=== PATIENT | female | born 1955 | race Caucasian/White ===

== ENCOUNTER 2020-08-03 10:44 | Day surgery (SDC) | payer MEDICARE ==
[2020-08-02 11:02] LABS: ALBUMIN 3.3 g/dL (3.4-5.0); ANION GAP 3 mmol/L (5-15); CHLORIDE 111 mmol/L (98-107)
[2020-08-02 11:04] LABS: INTERNATIONAL NORMALIZED RATIO 0.94 (0.93-1.1); PROTHROMBIN TIME 10.1 Seconds (9.6-11.5)
[2020-08-02 11:06] LABS: ALANINE AMINOTRANSFERASE 25 U/L (12-78); ALKALINE PHOSPHATASE 85 U/L (45-117); BASOPHILS % (AUTO) 1 % (0-1); BILIRUBIN,TOTAL 0.4 mg/dL (0.2-1.0); EOSINOPHILS % (AUTO) 1 % (1-7); LYMPHOCYTES % (AUTO) 26 % (22-44); MEAN CORPUSCULAR HEMOGLOBIN 32.9 pg (27.0-34.8); MEAN CORPUSCULAR HGB CONC 33.1 g/dL (32.4-35.8); MEAN PLATELET VOLUME 7.5 fL (7.4-10.4); MONOCYTES % (AUTO) 10 % (2-9); NEUTROPHILS % (AUTO) 62 % (42-75); PLATELET COUNT 304 x10^3/uL (130-400); RED BLOOD COUNT 4.12 x10^6/uL (3.82-5.3); TOTAL PROTEIN 7.3 g/dL (6.4-8.2)
[2020-08-02 11:07] LABS: MD NO
[~2020-08-03] VITALS: Ht 162.6 cm; Wt 106.7 kg
[~2020-08-03 10:44] MED LIST: BUPIVACAINE/PF-EPI 0.25% 1:200K ONE; CHOL10003 PO; CURCUMIN PO; EPHEDRINE 50 MG/ML, 1ML IVPush PRN; FENTANYL PF 100 MCG/2ML IV PRN; GLUC1CAP40 PO; HYDROmorphone 1 MG/ML, 1ML INJ IVPush PRN; KRIL500C PO; LABETALOL 5MG/ML, 20ML IV PRN; MILK175C5 PO; MULT-449 PO; NIACIN PO; ONDANSETRON 2MG/ML, 2ML IVPush PRN; OXYcodone 5 MG/5 ML ORAL.SOL UDC PO PRN; PROMETHAZINE 25 MG/ML, 1ML IVPush PRN; TURMERIC PO; VITS1TAB3 PO; [UNRECOGNIZED DRUG - OTHER] PO; hydrALAzine 20 MG/ML, 1ML IV PRN
[2020-08-03] MEDS ORDERED: CHLORHEXIDINE 15 ML UDC MM ONE (11:00)
[2020-08-03 11:09] VITALS: BP 163/93
[2020-08-03] MEDS ORDERED: MIDAZOLAM 1 MG/ML, 2ML ONE (11:22)
[2020-08-03] MEDS ORDERED: FENTANYL PF 250 MCG/5ML ONE (11:22)
[2020-08-03] MEDS ORDERED: CHLORHEXIDINE 15 ML UDC PO ONE (12:00)
[2020-08-03] MEDS ORDERED: LIDOCAINE-MPF 1%, 2ML INFIL ONE (12:00)
[2020-08-03] MEDS ORDERED: LACTATED RINGERS 1,000 ML IV SCH (12:00)
[2020-08-03] MEDS ORDERED: ACETAMINOPHEN 500 MG TABLET PO ONE (12:00)
[2020-08-03] MEDS ORDERED: DEXAMETHASONE 4 MG/ML, 1ML ONE (14:29)
[2020-08-03] MEDS ORDERED: SUCCINYLCHOLINE 20 MG/ML, 10ML ONE (14:29)
[2020-08-03] MEDS ORDERED: PROPOFOL 10 MG/ML, 20ML ONE (14:29)
[2020-08-03] MEDS ORDERED: ONDANSETRON 2MG/ML, 2ML ONE (14:29)
[2020-08-03] MEDS ORDERED: ROCURONIUM 10MG/ML,5ML ONE ×2 (14:29→15:41)
[2020-08-03] MEDS ORDERED: KETOROLAC 30 MG/1 ML ONE (15:00)
[2020-08-03] MEDS ORDERED: SUGAMMADEX 200 MG/2 ML IVPush ONE (15:01)
[2020-08-03] MEDS ORDERED: LIDOCAINE-MPF 2% ,5ML ONE (15:01)
[2020-08-03] MEDS ORDERED: EPHEDRINE 50 MG/ML, 1ML ONE ×2 (15:08)
[2020-08-03] MEDS ORDERED: MORPHINE SULFATE 4 MG/ML, 1ML ONE (15:25)
[2020-08-03] MEDS ORDERED: INDOCYANINE GREEN 25 MG VIAL ONE (15:48)
[2020-08-03] MEDS ORDERED: ACETAMINOPHEN 650 MG/20.3 ML UDC ONE (17:38)
[2020-08-03] MEDS ORDERED: OXYcodone 5 MG/5 ML ORAL.SOL UDC ONE (17:38)
[2020-08-03] MEDS ORDERED: FENTANYL PF 100 MCG/2ML ONE (17:38)
== END 2020-08-03 20:00 | disposition home or self-care (01) ==
LOC: OUT 10:44
PROVIDERS: ATTEND Specialist
DX: C54.1 Malignant neoplasm of endometrium (principal); D25.9 Leiomyoma of uterus, unspecified; N80.0 Endometriosis of uterus; D25.1 Intramural leiomyoma of uterus; N72 Inflammatory disease of cervix uteri; N88.8 Other specified noninflammatory disorders of cervix uteri; D39.12 Neoplasm of uncertain behavior of left ovary; N83.201 Unspecified ovarian cyst, right side; N95.0 Postmenopausal bleeding; Z20.822 Contact with and (suspected) exposure to COVID-19; Z79.01 Long term (current) use of anticoagulants; Z79.899 Other long term (current) drug therapy; Z87.891 Personal history of nicotine dependence; Z91.040 Latex allergy status; Z90.49 Acquired absence of other specified parts of digestive tract
CPT/HCPCS: 36415; 38570; 58552; 71046; 74018; 80053; 85025; 85610; 85730; 86304; 86850; 86900; 86920; 88112; 88305; 88307; 88309; 88329; 88333; 93005; J0330; J1100; J1885; J2250; J2270; J2405; J2704; J3010; U0003; 86923